=== PATIENT | female | born 1990 | race Caucasian/White ===

== ENCOUNTER 2017-10-20 12:30 | Outpatient (CLI) | payer OTHER ==
[2017-10-20 13:41] LABS: ADD UMIC YES; UR ASCORBIC ACID NEGATIVE (NEGATIVE); UR BACTERIA FEW /HPF (NONE SEEN); UR BILIRUBIN (Dip) NEGATIVE (NEGATIVE); UR BLOOD (Dip) NEGATIVE (NEGATIVE); UR CLARITY CLEAR (CLEAR); UR COLOR YELLOW (YELLOW); UR GLUCOSE (Dip) NEGATIVE (NEGATIVE); UR KETONES (Dip) NEGATIVE (NEGATIVE); UR LEUKOCYTE ESTERASE (Dip) TRACE Leu/ul (NEGATIVE); UR MUCUS FEW /HPF (NONE SEEN); UR NITRITE (Dip) NEGATIVE (NEGATIVE); UR RBC 0 /HPF (0-5); UR SPECIFIC GRAVITY (Dip) 1.023 (1.003-1.030); UR SQUAMOUS EPITHELIAL CELL FEW /HPF (FEW); UR TOTAL PROTEIN (Dip) NEGATIVE (NEGATIVE); UR UROBILINOGEN (Dip) NEGATIVE (NEGATIVE); UR WBC 1 /HPF (0-5)
[2017-10-20 14:14] LABS: ADD MAN DIFF? NO
[2017-10-20 14:17] LABS: BASOPHILS % 0.3 % (0.0-2.0); EOSINOPHILS # 0.1 10^3/ul (0.0-0.5); EOSINOPHILS % 0.9 % (0.0-7.0); HEMATOCRIT 28.9 % (37.0-47.0); HEMOGLOBIN 9.6 g/dl (12.0-16.0); LYMPHOCYTES # 2.1 10^3/ul (0.8-2.9); LYMPHOCYTES % 30.7 % (15.0-51.0); MEAN CORPUSCULAR HEMOGLOBIN 27.4 pg (29.0-33.0); MEAN CORPUSCULAR HGB CONC 33.2 g/dl (32.0-37.0); MEAN CORPUSCULAR VOLUME 82.6 fl (82.0-101.0); MONOCYTE # 0.4 10^3/ul (0.3-0.9); MONOCYTES % 6.3 % (0.0-11.0); NEUTROPHIL # 4.1 10^3/ul (1.6-7.5); NEUTROPHILS % 61.5 % (39.0-77.0); PLATELET COUNT 192 10^3/UL (140-415); RED CELL DISTRIBUTION WIDTH 14.5 % (11.5-14.5)
[2017-10-20 14:17] LABS: WHITE BLOOD COUNT 6.7 10^3/ul (4.8-10.8)
[2017-10-20 14:37] LABS: ANION GAP 15 (8-16)
[2017-10-20 14:41] LABS: ALANINE AMINOTRANSFERASE 22 IU/L (13-69); ALBUMIN 3.1 g/dl (3.3-4.9); ALBUMIN/GLOBULIN RATIO 0.91; ALKALINE PHOSPHATASE 137 IU/L (42-121); ASPARTATE AMINO TRANSFERASE 21 IU/L (15-46); BILIRUBIN,INDIRECT 0.3 mg/dl (0-1.1); BILIRUBIN,TOTAL 0.3 mg/dl (0.2-1.3); BLOOD UREA NITROGEN 9 mg/dl (7-20); CALCIUM 8.6 mg/dl (8.4-10.2); CARBON DIOXIDE 19 mmol/L (21-31); CHLORIDE 108 mmol/L (97-110); CREATININE 0.42 mg/dl (0.44-1.00); GLUCOSE 98 mg/dl (70-220); POTASSIUM 3.9 mmol/L (3.5-5.1); SODIUM 138 mmol/L (135-144); TOTAL PROTEIN 6.5 g/dl (6.1-8.1); URIC ACID 3.9 mg/dl (3.1-7.9)
[2017-10-20 14:42] LABS: INR 0.95; PARTIAL THROMBOPLASTIN TIME 30.7 Sec (25.0-35.0); PROTIME 12.8 Sec (11.9-14.9)
== END 2017-10-20 15:00 | disposition home or self-care (01) ==
LOC: OBT 12:30 → L-D 12:32 → OBT 15:00
DX: O35.8XX0 Maternal care for other (suspected) fetal abnormality and damage, not applicable or unspecified (principal); Z3A.37 37 weeks gestation of pregnancy
CPT/HCPCS: 76815; 76818; 80053; 81001; 84560; 85025; 85384; 85610; 85730

== ENCOUNTER 2017-11-01 13:55 | Inpatient (IN) | payer OTHER ==
[2017-11-01] MEDS ORDERED: METHYLERGONOVINE 0.2 MG INJ IM (15:00)
[2017-11-01] MEDS ORDERED: OXYTOCIN 30 UNITS/LR 500 ML IV (15:00)
[2017-11-01] MEDS ORDERED: MISOPROSTOL 200 MCG TAB PR (15:00)
[2017-11-01] MEDS ORDERED: LIDOCAINE 1% (MPF) 30 ML INJ INJ (15:00)
[2017-11-01] MEDS ORDERED: CARBOPROST 250 MCG INJ IM (15:00)
[2017-11-01] MEDS ORDERED: HYDROCODONE/APAP (5/325) TAB PO (15:00)
[2017-11-01] MEDS ORDERED: IBUPROFEN 600 MG TAB PO (15:00)
[2017-11-01] MEDS ORDERED: BUTORPHANOL 2 MG INJ IV (15:00)
[2017-11-01] MEDS: DINOPROSTONE 10 MG VAG SUPP VAG (16:13)
[2017-11-01] MEDS: LACTATED RINGER'S 1,000 ML IV (16:13)
[2017-11-01 16:22] LABS: ADD MAN DIFF? NO
[2017-11-01 16:26] LABS: WHITE BLOOD COUNT 7.1 10^3/ul (4.8-10.8)
[2017-11-01 16:26] LABS: BASOPHILS % 0.3 % (0.0-2.0); EOSINOPHILS % 0.6 % (0.0-7.0); HEMATOCRIT 30.7 % (37.0-47.0); HEMOGLOBIN 10.2 g/dl (12.0-16.0); LYMPHOCYTES % 28.1 % (15.0-51.0); MEAN CORPUSCULAR HEMOGLOBIN 27.6 pg (29.0-33.0); MEAN CORPUSCULAR HGB CONC 33.2 g/dl (32.0-37.0); MEAN CORPUSCULAR VOLUME 83.2 fl (82.0-101.0); MEAN PLATELET VOLUME 11.4 fl (7.4-10.4); MONOCYTE # 0.5 10^3/ul (0.3-0.9); MONOCYTES % 7.4 % (0.0-11.0); NEUTROPHIL # 4.5 10^3/ul (1.6-7.5); NEUTROPHILS % 63.3 % (39.0-77.0); PLATELET COUNT 195 10^3/UL (140-415); RED BLOOD COUNT 3.69 10^6/ul (4.20-5.40); RED CELL DISTRIBUTION WIDTH 14.6 % (11.5-14.5)
[2017-11-01 16:46] LABS: INR 0.97; PARTIAL THROMBOPLASTIN TIME 28.5 Sec (25.0-35.0)
[2017-11-01 17:21] LABS: HEPATITIS B SURFACE ANTIGEN NEGATIVE (NEGATIVE)
[2017-11-01] MEDS ORDERED: POLYMYXIN B 500000 UNIT INJ (20:42)
[2017-11-02] MEDS: LACTATED RINGER'S 1,000 ML IV ×5 (00:13→20:30)
[2017-11-02] MEDS: OXYTOCIN 30 UNITS/LR 500 ML IV ×3 (14:12→21:58)
[2017-11-02 15:18] LABS: RAPID PLASMA REAGIN NONREACTIVE (NR)
[2017-11-02] MEDS ORDERED: FENTAnyl 2MCG/ML-ROPIV 0.2% 100 ML (18:43)
[2017-11-02] MEDS ORDERED: NALOXONE (0.4 MG/ML) INJ IV (19:00)
[2017-11-02] MEDS: FENTAnyl 2MCG/ML-ROPIV 0.2% 100 ML BAG EPI (21:10)
[2017-11-02] MEDS ORDERED: OXYTOCIN 30 UNITS/LR 500 ML IV (23:30)
[2017-11-02] MEDS ORDERED: CARBOPROST 250 MCG INJ IM (23:30)
[2017-11-02] MEDS ORDERED: HYDROCODONE/APAP (5/325) TAB PO ×2 (23:30)
[2017-11-02] MEDS ORDERED: BENZOCAINE 20% 56 ML SPRAY TOP (23:30)
[2017-11-02] MEDS ORDERED: WITCH HAZEL/GLYCERIN PAD PR (23:30)
[2017-11-02] MEDS ORDERED: MISOPROSTOL 200 MCG TAB PR (23:30)
[2017-11-02] MEDS ORDERED: DIBUCAINE 1% 30 GM OINT PR (23:30)
[2017-11-02] MEDS ORDERED: ZOLPIDEM 5 MG TAB PO (23:30)
[2017-11-02] MEDS ORDERED: METHYLERGONOVINE 0.2 MG INJ IM (23:30)
[2017-11-03] MEDS: IBUPROFEN 600 MG TAB PO ×5 (00:44→23:38)
[2017-11-03] MEDS: CEPHALEXIN 500 MG CAP PO ×4 (00:44→17:47)
[2017-11-03] MEDS: LANOLIN 7 GM TUBE TOP (00:45)
[2017-11-03] MEDS: LACTATED RINGER'S 1,000 ML IV* ×4 (01:07→23:25)
[2017-11-03] MEDS: SENNA/DOCUSATE NA (8.6MG/50MG) TAB PO ×2 (08:46→21:13)
[2017-11-03] MEDS: MAGNESIUM HYDROXIDE 30ML CUP PO ×2 (08:46→21:12)
[2017-11-03 11:19] LABS: ADD MAN DIFF? NO
[2017-11-03 11:23] LABS: BASOPHILS % 0.3 % (0.0-2.0); EOSINOPHILS % 0.6 % (0.0-7.0); HEMATOCRIT 28.4 % (37.0-47.0); HEMOGLOBIN 9.2 g/dl (12.0-16.0); LYMPHOCYTES # 1.8 10^3/ul (0.8-2.9); MEAN CORPUSCULAR HEMOGLOBIN 27.1 pg (29.0-33.0); MEAN CORPUSCULAR HGB CONC 32.4 g/dl (32.0-37.0); MEAN CORPUSCULAR VOLUME 83.8 fl (82.0-101.0); MEAN PLATELET VOLUME 10.9 fl (7.4-10.4); MONOCYTE # 0.4 10^3/ul (0.3-0.9); MONOCYTES % 6.4 % (0.0-11.0); NEUTROPHILS % 63.4 % (39.0-77.0); PLATELET COUNT 152 10^3/UL (140-415); RED BLOOD COUNT 3.39 10^6/ul (4.20-5.40); RED CELL DISTRIBUTION WIDTH 14.5 % (11.5-14.5)
[2017-11-03 11:23] LABS: WHITE BLOOD COUNT 6.3 10^3/ul (4.8-10.8)
[2017-11-04] MEDS: CEPHALEXIN 500 MG CAP PO ×4 (00:52→18:00)
[2017-11-04] MEDS: IBUPROFEN 600 MG TAB PO ×3 (05:37→18:00)
[2017-11-04] MEDS: LACTATED RINGER'S 1,000 ML IV* (06:31)
[2017-11-04] MEDS: SENNA/DOCUSATE NA (8.6MG/50MG) TAB PO (08:52)
[2017-11-04] MEDS: MAGNESIUM HYDROXIDE 30ML CUP PO (08:52)
[2017-11-04] MEDS: DIPHTH/TET/ACEL PERTUSS (ADULT) 0.5 ML VIAL IM* (09:00)
[2017-11-04] MEDS: VARICELLA VACCINE LIVE/PF 1,350 UNIT/0.5 ML ML SC* (09:00)
[2017-11-04] MEDS: MEASLES,MUMPS,RUBELLA VACCINE INJ SC* (09:00)
== END 2017-11-04 18:44 | disposition home or self-care (01) | DRG 775 ==
LOC: L-D 13:55 → PP1 11-02 23:35
PROVIDERS: Obstetrics & Gynecology
PROC: 10E0XZZ Delivery of Products of Conception, External Approach (ICD-10-PCS; principal; 2017-11-02)
PROC: 0HQ9XZZ Repair Perineum Skin, External Approach (ICD-10-PCS; 2017-11-02)
PROC: 3E033VJ Introduction of Other Hormone into Peripheral Vein, Percutaneous Approach (ICD-10-PCS; 2017-11-02)
DX: O70.9 Perineal laceration during delivery, unspecified (principal); Z3A.39 39 weeks gestation of pregnancy; Z37.0 Single live birth
CPT/HCPCS: 62319; 76815; 85025; 85610; 85730; 86592; 86850; 86900; 86901; 87340

== ENCOUNTER 2018-02-28 20:56 | Emergency (ER) | payer MEDICAID, OTHER ==
[2018-02-28 23:48] LABS: URINE BLOOD (Dip) POC 1+ (NEGATIVE); URINE GLUCOSE (Dip) POC Negative (NEGATIVE); URINE KETONES (Dip) POC Negative (NEGATIVE); URINE LEUKOCYTE EST (Dip) POC 2+ (NEGATIVE); URINE NITRITE (Dip) POC Negative (NEGATIVE); URINE TOTAL PROTEIN POC 2+ (NEGATIVE)
[2018-03-01] MEDS: CEFTRIAXONE 1 GM INJ IM (00:31)
== END 2018-03-01 00:51 | disposition home or self-care (01) ==
LOC: FTE 03-01 00:51
DX: N39.0 Urinary tract infection, site not specified (principal)
CPT/HCPCS: 81003; 81025; 96372; 99284-25

== ENCOUNTER 2018-04-10 08:39 | Emergency (ER) | payer MEDICAID ==
[2018-04-10 10:11] LABS: ADD UMIC YES; UR ASCORBIC ACID NEGATIVE (NEGATIVE); UR BILIRUBIN (Dip) NEGATIVE (NEGATIVE); UR BLOOD (Dip) NEGATIVE (NEGATIVE); UR CLARITY SLIGHTLY CLOUDY (CLEAR); UR COLOR YELLOW (YELLOW); UR GLUCOSE (Dip) NEGATIVE (NEGATIVE); UR KETONES (Dip) NEGATIVE (NEGATIVE); UR LEUKOCYTE ESTERASE (Dip) TRACE Leu/ul (NEGATIVE); UR MUCUS FEW /HPF (NONE SEEN); UR NITRITE (Dip) NEGATIVE (NEGATIVE); UR RBC 1 /HPF (0-5); UR SPECIFIC GRAVITY (Dip) 1.023 (1.003-1.030); UR SQUAMOUS EPITHELIAL CELL FEW /HPF (FEW); UR TOTAL PROTEIN (Dip) 1+ mg/dl (NEGATIVE); UR UROBILINOGEN (Dip) NEGATIVE (NEGATIVE); UR WBC 3 /HPF (0-5)
== END 2018-04-10 10:56 | disposition home or self-care (01) ==
LOC: FTE 08:39
DX: J40 Bronchitis, not specified as acute or chronic (principal); J32.9 Chronic sinusitis, unspecified
CPT/HCPCS: 71046; 81001; 81025; 99284-25